=== PATIENT | female | born 1960 | race Caucasian/White ===

== ENCOUNTER 2018-07-25 17:30 | Emergency (ER) | payer OTHER ==
[~2018-07-25] VITALS: Ht 165.1 cm; Wt 60.7 kg
[2018-07-25 17:40] VITALS: BP 131/64
[2018-07-25] MEDS ORDERED: MULTI VITAMIN1 EACH PO (17:44)
[2018-07-25] MEDS ORDERED: MEDROLDOSEPACK PO (17:48)
== END 2018-07-25 17:58 | disposition home or self-care (01) ==
LOC: M.ERS 17:30
DX: I77.6 Arteritis, unspecified (principal); F17.200 Nicotine dependence, unspecified, uncomplicated; Z88.0 Allergy status to penicillin; Z90.49 Acquired absence of other specified parts of digestive tract; Z98.890 Other specified postprocedural states

== ENCOUNTER 2018-08-08 17:51 | Emergency (ER) | payer OTHER ==
[~2018-08-08] VITALS: Ht 165.1 cm; Wt 62.6 kg
[~2018-08-08 17:51] MED LIST: MEDROLDOSEPACK PO; MULTI VITAMIN1 EACH PO
[2018-08-08] MEDS ORDERED: TRAMADOL 50 MG50 MG PO (18:18)
[2018-08-08] MEDS ORDERED: MEDROLDOSEPACK PO (18:18)
[2018-08-08 18:21] VITALS: BP 124/74
== END 2018-08-08 18:30 | disposition home or self-care (01) ==
LOC: M.ERS 17:51
DX: R21 Rash and other nonspecific skin eruption (principal); Z90.49 Acquired absence of other specified parts of digestive tract; Z98.890 Other specified postprocedural states